=== PATIENT | female | born 1960 | race Caucasian/White ===

== ENCOUNTER 2017-11-29 15:59 | Emergency (ER) | payer SELFPAY ==
[~2017-11-29] VITALS: Ht 162.6 cm; Wt 75.0 kg
[~2017-11-29 15:59] MED LIST: OXYC-360 PO; PHEN-426 PO; SIMV10TA OR
[2017-11-29 16:06] VITALS: BP 200/83; PULSE 67; RESP 17; TEMP 97.4; O2SAT 98
[2017-11-29] MEDS ORDERED: ONDANSETRON ODT 4 MG TAB PO ONE (16:15)
[2017-11-29] MEDS ORDERED: SIMV10TA PO (17:48)
--- NOTE | 2017-11-29 17:55 | PD ---
HPI Chief Complaint: GI Complaint Time Seen by Provider: 17:45 Travel History International Travel<30 days: No Contact w/Intl Traveler<30days: No Traveled to known affect area: No History of Present Illness HPI 57-year-old female came to the emergency room with history of suprapubic pain starting from 3 PM today. Patient had a lithotripsy done today by Dr. Ambriz and was discharged home at noon. Patient says that she has had this procedure done twice before but has never been in so much pain and nausea. She could not hold anything down. She was discharged home with pain medications but was very nauseous and vomited the pain medication. Her daughter is here with her. Patient appears to be very anxious and significant discomfort. Vital signs were otherwise stable in triage. No radiation of the pain. No aggravating or relieving symptoms identified. No history of fever or chills. She was also discharged home on ciprofloxacin. She has failed all these prescriptions. [facility] Past Medical History Narrative Medical List of her past medical, surgical, social and family history reviewed from the nursing note Cancer: No High Cholesterol: Yes Diabetes: No Hepatitis: No Hiatal Hernia: No Thyroid Disease: No ?: Not Menopausal: Yes Past Surgical History Genitourinary Surgery: Yes ([facility]) Other Surgery: Yes Social History Alcohol Use: Yes (occasional) Tobacco Use: Yes (1/2 ppd) Substance Use: No Allergies-Medications (Allergen,Severity, Reaction): Coded Allergies: penicillin G (Unverified Allergy, Severe, hives, 11/29/17) Comments List of her allergies reviewed from the nursing note. Reported Meds & Prescriptions Reported Meds & Active Scripts Active Zofran Odt (Ondansetron Odt) 4 Mg Tab 4 Mg SL Q6HR PRN Reported Simvastatin 10 Mg Tab 10 Mg PO DAILY Narrative Medication List of her home medications reviewed from the nursing note Review of Systems Except as stated in HPI: all other systems reviewed are Neg Gastrointestinal: Positive: Nausea, Vomiting Genitourinary: Positive: Pelvic Pain Physical Exam Narrative GENERAL: Awake, alert, anxious, severe distress SKIN: Focused skin assessment warm/dry. Pale HEAD: Atraumatic. Normocephalic. EYES: Pupils equal and round. No scleral icterus. No injection or drainage. ENT: No nasal bleeding or discharge. Dry mucous membrane NECK: Trachea midline. No JVD. CARDIOVASCULAR: Regular rate and rhythm. No murmur appreciated. RESPIRATORY: No accessory muscle use. Clear to auscultation. Breath sounds equal bilaterally. GASTROINTESTINAL: Abdomen soft, non-tender, nondistended. Hepatic and splenic margins not palpable. MUSCULOSKELETAL: No obvious deformities. No clubbing. No cyanosis. No edema. NEUROLOGICAL: Awake and alert. No obvious cranial nerve deficits. Motor grossly within normal limits. Normal speech. PSYCHIATRIC: Appropriate mood and affect; insight and judgment normal. Data Data Last Documented VS Orders Orders Ondansetron Odt (Zofran Odt) (11/29/17 16:15) Basic Metabolic Panel (Bmp) (11/29/17 18:22) Complete Blood Count With Diff (11/29/17 18:22) Urinalysis - C+S If Indicated (11/29/17 18:22) Iv Access Insert/Monitor (11/29/17 18:22) Ecg Monitoring (11/29/17 18:22) Oximetry (11/29/17 18:22) Sodium Chloride 0.9% Flush (Ns Flush) (11/29/17 18:30) Ct Abd/Pel W/O Iv Contrast (11/29/17 18:25) Morphine Inj (Morphine Inj) (11/29/17 18:30) Sodium Chlor 0.9% 1000 Ml Inj (Ns 1000 M (11/29/17 18:30) Ketorolac Inj (Toradol Inj) (11/29/17 19:00) Urine Culture (11/29/17 18:42) Ciprofloxacin 400 Mg Premix (Cipro 400 M (11/29/17 19:45) Blood Culture (11/29/17 19:32) Ed Discharge Order (11/29/17 19:50) Labs Laboratory Tests Test 11/29/17 18:42 White Blood Count 14.1 TH/MM3 Red Blood Count 4.67 MIL/MM3 Hemoglobin 13.8 GM/DL Hematocrit 42.1 % Mean Corpuscular Volume 90.1 FL Mean Corpuscular Hemoglobin 29.6 PG Mean Corpuscular Hemoglobin Concent 32.8 % Red Cell Distribution Width 12.7 % Platelet Count 316 TH/MM3 Mean Platelet Volume 8.0 FL Neutrophils (%) (Auto) 90.1 % Lymphocytes (%) (Auto) 6.5 % Monocytes (%) (Auto) 2.9 % Eosinophils (%) (Auto) 0.1 % Basophils (%) (Auto) 0.4 % Neutrophils # (Auto) 12.7 TH/MM3 Lymphocytes # (Auto) 0.9 TH/MM3 Monocytes # (Auto) 0.4 TH/MM3 Eosinophils # (Auto) 0.0 TH/MM3 Basophils # (Auto) 0.1 TH/MM3 CBC Comment DIFF FINAL Differential Comment Urine Color YELLOW Urine Turbidity HAZY Urine pH 6.0 Urine Specific [place] 1.017 Urine Protein 30 mg/dL Urine Glucose (UA) 50 mg/dL Urine Ketones 20 mg/dL Urine Occult Blood LARGE Urine Nitrite NEG Urine Bilirubin NEG Urine Urobilinogen LESS THAN 2 mg/dL Urine Leukocyte Esterase NEG Urine RBC /hpf Urine WBC 9 /hpf Urine Squamous Epithelial Cells 2 /hpf Urine Bacteria OCC /hpf Urine Mucus FEW /lpf Urine Yeast (Budding) OCC Microscopic Urinalysis Comment CULTURE INDICATED Blood Urea Nitrogen 14 MG/DL Creatinine 1.09 MG/DL Random Glucose 131 MG/DL Calcium Level 9.2 MG/DL Sodium Level 138 MEQ/L Potassium Level 4.2 MEQ/L Chloride Level 104 MEQ/L Carbon Dioxide Level 23.6 MEQ/L Anion Gap 10 MEQ/L Estimat Glomerular Filtration Rate 52 ML/MIN [facility] Medical Decision Making Medical Screen Exam Complete: Yes Emergency Medical Condition: Yes Medical Record Reviewed: Yes Differential Diagnosis Ureteral colic, postprocedural pain, UTI Narrative Course 7:30 PM CBC suggestive of leukocytosis. Awaiting for chemistry and UA. Patient was medicated for pain and nausea. CAT scan shows multiple stones in the right ureter with hydroureter and hydronephrosis. The largest stone is 5 mm. I went back and reassessed the patient and she said currently the pain is 2 out of 10. I will give her another dose of pain medication. I have given the patient the option of being admitted for pain control versus going home and follow-up with the urologist. Patient is leaning towards following with the urologist outpatient. If the chemistry and UA comes back within normal limit I will discharge her home. I will give her a prescription for nausea medication as well. 7:51 PM chemistry and UA is back. UA shows large amount of red blood cells. I have given her a dose of IV ciprofloxacin. I discussed the case with Dr. Ambriz who was also high tension tester for urology today. As per him if the pain is under control and patient is afebrile and comfortable going home she could be discharged. I will include a prescription for Zofran with the discharge instructions. Procedures EKG Prior to Arrival: No Physician Communication Physician Communication Dr. Ambriz Diagnosis Primary Impression: Status post laser lithotripsy of ureteral calculus Additional Impressions: Ureteral colic Hydroureter Referrals: Oral Ambriz MD Additional Instructions: Please follow-up with your urologist or call if there are any further questions. Take the medications prescribed by him as per the instructions. Take the nausea medication prescribed to you from the emergency room as per the prescription direction. Return to the ER if condition worsens any other new concerns. Drink lots of fluid. Med/Other Pt SpecificInfo: Prescription(s) given Scripts Ondansetron Odt (Zofran Odt) 4 Mg Tab 4 MG SL Q6HR Y for Nausea/Vomiting, #20 TAB 0 Refills Prov: Danielle Crystal MD 11/29/17 Disposition: 01 DISCHARGE HOME Condition: Stable Danielle Crystal MD Nov 29, 2017 17:55
[2017-11-29] MEDS ORDERED: MORPHINE SULFATE 8 MG/ML INJ IV PUSH ONE (18:30)
[2017-11-29] MEDS ORDERED: SODIUM CHLORIDE 0.9% FLUSH 10 ML FLUSH IV FLUSH PRN (18:30)
[2017-11-29] MEDS ORDERED: SODIUM CHLOR 0.9% 1000 ML INJ 1,000 ML IV ONE (18:30)
[2017-11-29] MEDS ORDERED: KETOROLAC TROMETHAMINE 30 MG/ML (IVP) VIAL IV PUSH ONE (19:00)
[2017-11-29 19:15] LABS: AUTOMATED NEUTROPHIL # 12.7 TH/MM3 (1.8-7.7); BASOPHIL # 0.1 TH/MM3 (0-0.2); BASOPHIL % 0.4 % (0.0-2.0); EOSINOPHIL % 0.1 % (0.0-4.0); HEMATOCRIT 42.1 % (35.0-46.0); HEMOGLOBIN 13.8 GM/DL (11.6-15.3); LYMPH % 6.5 % (9.0-44.0); LYMPHOCYTE # 0.9 TH/MM3 (1.0-4.8); MEAN CELL VOLUME 90.1 FL (80.0-100.0); MEAN CORPUSCULAR HEMOGLOBIN 29.6 PG (27.0-34.0); MEAN CORPUSCULAR HGB CONC 32.8 % (32.0-36.0); MONO % 2.9 % (0.0-8.0); MONOCYTE # 0.4 TH/MM3 (0-0.9); NEUT % 90.1 % (16.0-70.0); PLATELET COUNT 316 TH/MM3 (150-450); RED BLOOD COUNT 4.67 MIL/MM3 (4.00-5.30); RED CELL DISTRIBUTION WIDTH 12.7 % (11.6-17.2); WHITE BLOOD COUNT 14.1 TH/MM3 (4.0-11.0)
--- NOTE | 2017-11-29 19:16 | RADRPT ---
EXAM DATE: 11/29/2017 6:56 PM EDT AGE/SEX: 57 years / Female INDICATIONS: LITHOTRIPSY WITH BLADDER SCOPE TODAY,VOMITING,PAIN CLINICAL DATA: This is the patient's initial encounter. Patient reports that signs and symptoms have been present for 1 day and indicates a pain score of 10/10. MEDICAL/SURGICAL HISTORY: Renal calculi. Lithotripsy. RADIATION DOSE: 6.77 CTDI (mGy) COMPARISON: CT of the abdomen and pelvis 08/13/2010. TECHNIQUE: Multiple contiguous axial images were obtained through the abdomen. Images were obtained using multiple row detector helical technique. Using automated exposure control and adjustment of the mA and/or kV according to patient size, radiation dose was kept as low as reasonably achievable to o btain optimal diagnostic quality images. DICOM format image data is available electronically for rev iew and comparison. FINDINGS: Lower Lungs: The visualized lower lungs are clear. Liver: The liver has a homogeneous density without space-occupying lesion. There is no dilation of th e biliary tree. Spleen: Homogeneous density without enlargement. Pancreas: Unremarkable without mass or calcification. Kidneys: Multiple stacked stones seen involving the distal ureter at the UVJ. The stones sit atop on e another and therefore the exact number cannot be calculated due to averaging artifact. There is at least 5 stones with the largest measuring 5 mm. There is resulting significant hydronephrosis and hyd roureter. Numerous 3 to 5 mm stones scattered throughout the right kidney including the renal pelvis. 2 small 1 to 2 mm stones involving the left kidney. No ureteral stone on the left. Perinephric stran ding on the right without perinephric fluid collection.. Adrenal Glands: Unremarkable. Aorta: The aorta and proximal iliac vessels are grossly unremarkable without aneurysmal dilation. Bowel/Mesentery: The bowel loops are grossly unremarkable. The cecum and sigmoid colon have a normal configuration. Abdominal Wall: Intact. Retroperitoneum: No evidence of adenopathy in the retrocrural, para-aortic, or deep pelvic regions. Bladder: Area seen within the lumen of the bladder. Contours are smooth. Reproductive Organs: No abnormal masses or calcifications seen. Inguinal: The inguinal region is unremarkable without evidence of adenopathy. Bony Structures: Unremarkable. CONCLUSION: 1. Multiple stacked stones within the right ureter at the UVJ with the largest measuring 5 mm. There are numerous stones throughout the right kidney and right renal pelvis. There is hydronephrosis and hydroureter. 2. 2 tiny nonobstructing stones on the left. 3. Air within the urinary bladder presumably from recent instrumentation. Electronically signed by: George Solorzano MD 11/29/2017 7:14 PM EDT
[2017-11-29 19:23] LABS: BACTERIA, URINE OCC /hpf; BILIRUBIN, URINE NEG (NEG); BLOOD, URINE LARGE (NEG); GLUCOSE,URINE 50 mg/dL (NEG); KETONE, URINE 20 mg/dL (NEG); MUCUS URINE FEW /lpf (OCC); NITRITE,URINE NEG (NEG); SQUAMOUS EPITHELIAL CELL URINE 2 /hpf (0-5); URINE COLOR YELLOW (YELLW/STRAW); URINE LEUKOCYTE ESTERASE NEG (NEG)
[2017-11-29 19:39] LABS: BICARBONATE 23.6 MEQ/L (21.0-32.0); CALCIUM 9.2 MG/DL (8.5-10.1); CREATININE 1.09 MG/DL (0.50-1.00)
[2017-11-29 19:45] VITALS: BP 145/87; PULSE 82; RESP 16; O2SAT 98
[2017-11-29] MEDS ORDERED: CIPROFLOXACIN 400 MG PREMIX 200 ML IV ONE (19:45)
[2017-11-29] MEDS ORDERED: ZOFR4TAB3 SL (19:53)
[2017-11-29 20:06] VITALS: RESP 18
== END 2017-11-29 20:50 | disposition home or self-care (01) ==
LOC: NEPD 15:59
DX: N23 Unspecified renal colic (principal); N13.4 Hydroureter; N20.0 Calculus of kidney; R11.2 Nausea with vomiting, unspecified; E78.00 Pure hypercholesterolemia, unspecified; Z79.899 Other long term (current) drug therapy; Z88.0 Allergy status to penicillin; F17.200 Nicotine dependence, unspecified, uncomplicated
CPT/HCPCS: 74176; 80048; 81001; 85025; 87040; 87086; 96365; 96375; 99284; J0744; J1885; J2270; J7030